=== PATIENT | male | born 1945 | race Caucasian/White ===

== ENCOUNTER 2024-04-12 12:44 | Day surgery (SDC) | payer OTHER, MEDICARE ==
[~2024-04-12] VITALS: Ht 182.9 cm; Wt 105.4 kg
[2024-04-12] VITALS (9 sets, daily range): BP systolic 122–141; BP diastolic 60–97; PULSE 51–63; RESP 12–20; O2SAT 94–98
[2024-04-12] MEDS ORDERED: diphenhydrAMINE 25mg capsule PO PRN (13:10)
[2024-04-12] MEDS ORDERED: normal saline 1,000 ML IV SCH (13:10)
[2024-04-12] MEDS ORDERED: LORazepam 0.5 MG tablet PO PRN (13:10)
[2024-04-12] MEDS ORDERED: XAL0.005OS OP (13:17)
[2024-04-12] MEDS ORDERED: HYDR12.55 PO (13:17)
[2024-04-12] MEDS ORDERED: ATOR40TA72 PO (13:17)
[2024-04-12] MEDS ORDERED: TIMO5SOL OP (13:17)
[2024-04-12] MEDS ORDERED: MULT-1085 PO (13:17)
[2024-04-12] MEDS ORDERED: ASPI-611 PO (13:17)
[2024-04-12 13:44] LABS: BASOPHILS # (AUTO) 0.1 X10'3 (0-0.2); EOSINOPHILS # (AUTO) 0.3 X10'3 (0-0.9); EOSINOPHILS % (AUTO) 4.9 % (0-6); HEMOGLOBIN 14.5 g/dl (14.0-17.9); LYMPHOCYTES # (AUTO) 1.9 X10'3 (1.1-4.8); LYMPHOCYTES % (AUTO) 28.1 % (21-51); MEAN CORPUSCULAR HEMOGLOBIN 30.4 PG (27.0-31.0); MEAN CORPUSCULAR HGB CONC 34.5 g/dL (33.0-36.5); MEAN CORPUSCULAR VOLUME 88.1 FL (78-98); MEAN PLATELET VOLUME 8.8 FL (7.4-10.4); MONOCYTES # (AUTO) 0.5 X10'3 (0-0.9); MONOCYTES % (AUTO) 7.6 % (2-12); NEUTROPHILS % (AUTO) 58.4 % (42-75); PLATELET COUNT 205 X10'3 (140-440); RED BLOOD COUNT 4.77 X10'6 (4.70-6.10); RED CELL DISTRIBUTION WIDTH 13.6 % (11.5-14.5); WHITE BLOOD COUNT 6.9 X10'3 (4.5-11.0)
[2024-04-12 13:48] LABS: APTT 26 SECONDS (22-32); PROTHROMBIN TIME 10.9 SECONDS (9.0-12.0)
[2024-04-12 13:50] LABS: ANION GAP 9 (8-16); BLOOD UREA NITROGEN 9 MG/DL (7-18); BUN/CREATININE RATIO 9.9 (10.0-20.0); CALCIUM 9.3 MG/DL (8.5-10.1); CHLORIDE 101 MMOL/L (99-107); CHOL/HDL RATIO 4.1 (0.00-4.99); CHOLESTEROL 152 MG/DL (0-200); CREATININE 0.91 MG/DL (0.60-1.10); GLUCOSE 94 MG/DL (70-104); HDL CHOLESTEROL 37 MG/DL (35-60); LDL CHOLESTEROL 86 MG/DL (50-100); POTASSIUM 3.8 MMOL/L (3.5-5.1); SODIUM 135 MMOL/L (135-145); TOTAL CARBON DIOXIDE 25.4 MMOL/L (24-32); TRIGLYCERIDES 304 MG/DL (20-135); eCRCL 76 ML/MIN; eGFR 81 ML/MIN
[2024-04-12] MEDS ORDERED: verapamil 2.5 mg/ml inj IV ONE (16:03)
[2024-04-12] MEDS ORDERED: fentaNYL/PF 50MCG/1 ML 2ML syringe ONE (16:03)
[2024-04-12] MEDS ORDERED: heparin 1,000unit/ml 10ml vial 10 ML ONE (16:03)
[2024-04-12] MEDS ORDERED: LIDOcaine 1% (10mg/ml) 2ml vial ONE ×2 (16:03→16:19)
[2024-04-12] MEDS ORDERED: iohexol 350MG/ML 100ml bottle IV ONE (16:03)
[2024-04-12] MEDS ORDERED: midazolam 1 mg/ML 2ml injection ONE (16:03)
[2024-04-12] MEDS ORDERED: iohexol 350 MG/ML 50ML vial IV ONE (16:31)
[2024-04-12 16:45] LABS: ISTAT HGB ART 12.6 g/dl (14.0-17.9); ISTAT Hct ART 37 %PCV (42-52); ISTAT O2 SATURATION ARTERIAL 92 % (95-98); ISTAT SOURCE ART
[2024-04-12] MEDS ORDERED: HYDROcodone/acetaminophen 10/325mg tab PO PRN (18:15)
[2024-04-12] MEDS ORDERED: HYDROcodone/acetaminophen 5mg/325mg tablet PO PRN (18:15)
[2024-04-13 06:15] LABS: ISTAT HGB MIX 12.6 g/dl (14.0-17.9); ISTAT Hct MIX 37 %PCV (42-52); ISTAT O2 SATURATION MIX VENOUS 69 % (60-80); ISTAT SOURCE VEN
== END 2024-04-12 19:15 | disposition home or self-care (01) ==
LOC: SSTAY O 12:44
PROVIDERS: ATTEND Student in an Organized Health Care Education/Training Program
DX: I35.0 Nonrheumatic aortic (valve) stenosis (principal); I10 Essential (primary) hypertension; E78.00 Pure hypercholesterolemia, unspecified; K21.9 Gastro-esophageal reflux disease without esophagitis; G43.909 Migraine, unspecified, not intractable, without status migrainosus; F43.10 Post-traumatic stress disorder, unspecified; H40.9 Unspecified glaucoma; Z79.82 Long term (current) use of aspirin; Z79.899 Other long term (current) drug therapy
CPT/HCPCS: 36415; 80048; 80061; 82803; 85014; 85025; 85610; 85730; 93005; 93456; 99152; J1644; J2250; J3010; J3490; J7030; Q9967; A6258; A6402; A6449; C1751; C1894

== ENCOUNTER → 2024-04-27 | Outpatient (CLI) | payer OTHER, MEDICARE ==
[~2024-04-27] MED LIST: ASPI-611 PO; ATOR40TA72 PO; HYDR12.55 PO; IODIXANOL 320 MG/ML INFUS..BTL 100ML IV ONE; MULT-1085 PO; TIMO5SOL OP; XAL0.005OS OP
[2024-04-27 10:51] LABS: MEAN PLATELET VOLUME 8.5 FL (7.4-10.4)
[2024-04-27 10:53] LABS: BASOPHILS # (AUTO) 0.1 X10'3 (0-0.2); BASOPHILS % (AUTO) 1.1 % (0-1); EOSINOPHILS # (AUTO) 0.4 X10'3 (0-0.9); EOSINOPHILS % (AUTO) 4.9 % (0-6); HEMATOCRIT 40.3 % (42.0-52.0); HEMOGLOBIN 14.4 g/dl (14.0-17.9); LYMPHOCYTES # (AUTO) 1.5 X10'3 (1.1-4.8); MEAN CORPUSCULAR HEMOGLOBIN 31.1 PG (27.0-31.0); MEAN CORPUSCULAR HGB CONC 35.7 g/dL (33.0-36.5); MONOCYTES # (AUTO) 0.5 X10'3 (0-0.9); PLATELET COUNT 165 X10'3 (140-440); RED BLOOD COUNT 4.63 X10'6 (4.70-6.10); RED CELL DISTRIBUTION WIDTH 13.5 % (11.5-14.5); WHITE BLOOD COUNT 7.4 X10'3 (4.5-11.0)
[2024-04-27 11:02] LABS: APTT 25 SECONDS (22-32); PROTHROMBIN TIME 11.2 SECONDS (9.0-12.0)
[2024-04-27 11:12] LABS: ALANINE AMINOTRANSFERASE 43 U/L (12-78); ALBUMIN 3.8 G/DL (3.4-5.0); ALBUMIN/GLOBULIN RATIO 1.3 (1.1-1.5); ALKALINE PHOSPHATASE 56 IU/L (46-116); ANION GAP 9 (8-16); ASPARTATE AMINO TRANSFERASE 16 U/L (10-37); BILIRUBIN,TOTAL 0.7 MG/DL (0.1-1.0); BLOOD UREA NITROGEN 11 MG/DL (7-18); BUN/CREATININE RATIO 12.4 (10.0-20.0); CALCIUM 9.5 MG/DL (8.5-10.1); CHLORIDE 102 MMOL/L (99-107); CREATININE 0.89 MG/DL (0.60-1.10); GLUCOSE 104 MG/DL (70-104); POTASSIUM 3.8 MMOL/L (3.5-5.1); PRO BRAIN NATRIURETIC PEPTIDE 249 PG/ML (0-450); SODIUM 137 MMOL/L (135-145); TOTAL CARBON DIOXIDE 26.5 MMOL/L (24-32); TOTAL PROTEIN 6.7 G/DL (6.4-8.2); eGFR 83 ML/MIN
== END | disposition home or self-care (01) ==
LOC: RAD 10:08
PROVIDERS: ATTEND Internal Medicine Cardiovascular Disease
DX: I51.7 Cardiomegaly (principal); K80.20 Calculus of gallbladder without cholecystitis without obstruction; I35.0 Nonrheumatic aortic (valve) stenosis; R06.02 Shortness of breath; I65.29 Occlusion and stenosis of unspecified carotid artery; I70.0 Atherosclerosis of aorta; K57.30 Diverticulosis of large intestine without perforation or abscess without bleeding
CPT/HCPCS: 36415; 71046; 71275; 74174; 75572; 80053; 83880; 85025; 85610; 85730; Q9967

== ENCOUNTER 2024-12-24 09:49 | Emergency (ER) | payer OTHER, MEDICARE ==
[~2024-12-24] VITALS: Ht 182.9 cm; Wt 102.8 kg
[~2024-12-24 09:49] MED LIST changes: -IODIXANOL 320 MG/ML INFUS..BTL 100ML IV ONE; -TIMO5SOL OP; +TIMO5SOL RIGHTEYE; +XAL0.005OS EACHEYE; -XAL0.005OS OP
[2024-12-24 09:50] VITALS: BP 153/59; PULSE 59; RESP 16; TEMP 97.7; O2SAT 97
[2024-12-24] MEDS ORDERED: SULF1TAB49 PO (10:17)
== END 2024-12-24 10:20 | disposition home or self-care (01) ==
LOC: ER 09:49
DX: L02.12 Furuncle of neck (principal); Z79.1 Long term (current) use of non-steroidal anti-inflammatories (NSAID); Z79.899 Other long term (current) drug therapy
CPT/HCPCS: 99283